=== PATIENT | male | born 1975 ===

== ENCOUNTER 2017-01-06 14:25 | Emergency (ER) | payer OTHER ==
[2017-01-06 14:25] VITALS: BMI 23.3
[2017-01-06 14:44] VITALS: RESP 18; O2SAT 98
--- NOTE | 2017-01-06 15:29 | C.PDOC ---
History Of Present Illness 41 yo male w/o significant PMHx come in for evaluation of mild frontal headache , nasal congestion, runny nose, bodyaches, sore throat gradually developed for past few days. Otherwise, t denies high fever, chills, worse headache of life, drooling, dyspnea, SOB, wheezing, abd. pain, V/D, back pain, UTI sx. Ambulate to ED for evaluation, not in any apparent distress. Time Seen by Provider: 01/06/17 14:44 Chief Complaint (Nursing): ENT Problem Past Medical History Vital Signs: Last Vital Signs Temp 99.4 F 01/06/17 14:40 Pulse 84 01/06/17 14:40 Resp 18 01/06/17 14:40 BP 112/76 01/06/17 14:40 Pulse Ox 98 01/06/17 14:40 Family History: States: Unknown Family Hx - Social History Hx Alcohol Use: No Hx Substance Use: No - Immunization History Hx Tetanus Toxoid Vaccination: No Hx Influenza Vaccination: No Hx Pneumococcal Vaccination: No Physical Exam - Physical Exam Appears: Well, Non-toxic, No Acute Distress Skin: Normal Color, Warm, Dry, No Rash Head: Normacephalic Eye(s): bilateral: PERRL Ear(s): Bilateral: Normal Nose: No Flaring, Discharge (B/L scant) Oral Mucosa: Moist, No Drooling Tongue: Normal Appearing Lips: Normal Appearing Throat: Erythema (mod with mild edema.), No Exudate, No Drooling Neck: Trachea Midline, Supple Cardiovascular: Rhythm Regular Respiratory: No Decreased Breath Sounds, No Accessory Muscle Use, No Stridor, No Wheezing Gastrointestinal/Abdominal: Soft, No Tenderness, No Distention, No Guarding Back: No CVA Tenderness Extremity: Normal ROM, No Deformity, No Swelling Neurological/Psych: Oriented x3, Normal Speech ED Course And Treatment O2 Sat by Pulse Oximetry: 98 Pulse Ox Interpretation: Normal Progress Note: On re-eval, pt is afebrile, hemodynamicaly stable. non-toxic. Tolerate Po well in ED. PulseOx 98% RA. ENT: exam c/w acute pharyngitis. uvula midline, no edmea. neck: Supple, (-) meningeal sign. Lungs: CTA B/L, BS equal B/L. CVS: (+)S1S2, reg. Abd: benign. Neuorlogicaly intact. Influenza ( -). Pt advised on course of ds. refl. to F/U with PMD in 2-3 days for re- eval. return to ED if any worsening or new changes. Disposition Counseled Patient/Family Regarding: Studies Performed, Diagnosis, Need For Followup, Rx Given - Disposition Referrals: [facility] [Outside] Disposition: HOME/ ROUTINE Disposition Time: 15:26 Condition: STABLE Additional Instructions: ENCOURAGE FLUIDS TAKE MEDICATION PRESCRIBED FOLLOW UP WITH PMD IN 2-3 DAYS FOR RE-EVALUATION. RETURN TO ED IF ANY WORSENING OR NEW CHANGES. Prescriptions: Amoxicillin/Clavulanate [Augmentin 875 MG-125 MG] 1 tab PO BID #14 tab Ibuprofen [Motrin Tab] 400 mg PO Q6 #20 tab Prednisone [Deltasone] 40 mg PO DAILY #6 tablet Instructions: Pharyngitis (ED) Forms: [employer] (Bengali) Print Language: ESTONIAN - Clinical Impression Clinical Impression: Pharyngitis
[2017-01-06 15:45] VITALS: BP 110/67; PULSE 71; TEMP 100.1
== END 2017-01-06 15:52 | disposition home or self-care (01) ==
LOC: C.ER 14:25
DX: J02.9 Acute pharyngitis, unspecified (principal)

== ENCOUNTER 2017-09-01 11:54 | Emergency (ER) | payer OTHER ==
[2017-09-01 11:54] VITALS: BMI 23.3
[2017-09-01 12:02] VITALS: RESP 18
[2017-09-01] MEDS ORDERED: Sodium Chloride 0.9% 1,000 ML IV STA (12:48)
[2017-09-01 13:35] LABS: BASO # 0.1 K/uL (0.0-0.2); EOS # 0.5 K/uL (0.0-0.7); HEMOGLOBIN 14.4 g/dL (12.0-18.0); LYMPH # 1.8 K/uL (1.0-4.3); LYMPH % 23.5 % (20.0-40.0); MEAN CORPUSCULAR HGB CONC 35.4 g/dL (33.0-37.0); MEAN PLATELET VOLUME 9.9 fL (7.2-11.7); MONO # 0.7 K/uL (0.0-0.8); MONO % 9.1 % (0.0-10.0); NEUT # 4.6 K/uL (1.8-7.0); NEUT % 59.4 % (50.0-75.0); NRBC % 0.1 % (0.0-2.0); RBC 4.98 Mil/uL (4.40-5.90); RED CELL DISTRIBUTION WIDTH 13.5 % (11.5-14.5); WHITE BLOOD COUNT 7.7 K/uL (4.8-10.8)
[2017-09-01] MEDS ORDERED: Iohexol 240 (50 ml) ONE (13:39)
[2017-09-01 13:42] LABS: URINE BILIRUBIN NEGATIVE (NEGATIVE); URINE BLOOD NEGATIVE (NEGATIVE); URINE CLARITY Clear (Clear); URINE COLOR Straw (YELLOW); URINE GLUCOSE (UA) NORMAL (Normal); URINE LEUKOCYTE ESTERASE NEG Leu/uL (Negative); URINE PROTEIN NEGATIVE (NEGATIVE); URINE UROBILINOGEN NORMAL mg/dL (0.2-1.0)
[2017-09-01 13:47] LABS: ALB/GLOB RATIO 1.5 (1.0-2.1); ALBUMIN 4.1 g/dL (3.5-5.0); ALT/SGPT 30 U/L (21-72); AST/SGOT 30 U/L (17-59); BLOOD UREA NITROGEN 14 mg/dL (9-20); CALCIUM 9.1 mg/dl (8.6-10.4); GFR AFRICAN-AMERICAN > 60; GFR NON-AFRICAN AMERICAN > 60; LIPASE 101 U/L (23-300)
[2017-09-01 15:54] VITALS: PULSE 43; O2SAT 98
[2017-09-01] MEDS ORDERED: Iohexol 350mg/ml 100 ML ONE (16:25)
--- NOTE | 2017-09-01 16:55 | C.PDOC ---
History Of Present Illness 42 y/o male presents to the ER complaining of abdominal pain which has been present for the past 3-4 days. Patient states that the pain radiates to the back. he had similar episode of pain previously which resolved. Denies having nausea,vomiting, and diarrhea. 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 Time Seen by Provider: 09/01/17 12:17 Chief Complaint (Nursing): Abdominal Pain History Per: Patient History/Exam Limitations: no limitations Onset/Duration Of Symptoms: Days Current Symptoms Are (Timing): Still Present Severity: Moderate Associated Symptoms: denies: Fever, Chills, Nausea, Vomiting, Diarrhea Past Medical History Reviewed: Historical Data, Nursing Documentation, Vital Signs Vital Signs: Last Vital Signs Temp 97.7 F 09/01/17 18:02 Pulse 43 L 09/01/17 18:02 Resp 18 09/01/17 18:02 BP 113/71 09/01/17 18:02 Pulse Ox 98 09/01/17 18:02 - Medical History PMH: No Chronic Diseases Surgical History: No Surg Hx Family History: States: No Known Family Hx - Social History Hx Alcohol Use: No Hx Substance Use: No - Immunization History Hx Tetanus Toxoid Vaccination: No Hx Influenza Vaccination: No Hx Pneumococcal Vaccination: No Review Of Systems Except As Marked, All Systems Reviewed And Found Negative. Constitutional: Negative for: Fever, Chills Gastrointestinal: Positive for: Abdominal Pain. Negative for: Nausea, Vomiting , Diarrhea Physical Exam - Physical Exam Appears: Non-toxic, No Acute Distress Skin: Normal Color, Warm, Dry Head: Atraumatic, Normacephalic Eye(s): bilateral: Normal Inspection Nose: Normal Oral Mucosa: Moist Neck: Supple Chest: Symmetrical Cardiovascular: Rhythm Regular Respiratory: Normal Breath Sounds, No Rales, No Rhonchi, No Wheezing Gastrointestinal/Abdominal: Soft, Tenderness (diffuse mild tenderness to lower abdomen, mostly anterior abdominal wall), No Guarding, No Rebound Back: Paraspinal Tenderness (ls spine area) Extremity: Normal ROM Neurological/Psych: Oriented x3, Normal Speech ED Course And Treatment - Laboratory Results Result Diagrams: 09/01/17 12:48 09/01/17 12:48 O2 Sat by Pulse Oximetry: 98 (RA) Pulse Ox Interpretation: Normal - CT Scan/US CT- Abd & Pelv. Other Rad Studies (CT/US): Read By Radiologist, Radiology Report Reviewed CT/US Interpretation: Date of service: 09/01/2017. PROCEDURE: CT Abdomen and Pelvis with contrast. HISTORY: lower abd pain. COMPARISON: None. TECHNIQUE : Contrast dose: 100 mL Omnipaque 300. Radiation dose: Total exam DLP = 236.6 mGy-cm. This CT exam was performed using one or more of the following dose reduction techniques: Automated exposure control, adjustment of the mA and/ or kV according to patient size, and/or use of iterative reconstruction technique. FINDINGS: LOWER THORAX: Unremarkable. LIVER: Mild periportal edema. No gross lesion or ductal dilatation. GALLBLADDER AND BILE DUCTS: Unremarkable. PANCREAS: Unremarkable. No gross lesion or ductal dilatation. SPLEEN: Unremarkable. ADRENALS: Unremarkable. No mass. KIDNEYS AND URETERS: Unremarkable. No hydronephrosis. No solid mass. VASCULATURE: Unremarkable. No aortic aneurysm. BOWEL: Unremarkable. No obstruction. No gross mural thickening. APPENDIX: Normal appendix. PERITONEUM: Unremarkable. No free fluid. No free air. LYMPH NODES: Unremarkable. No enlarged lymph nodes. BLADDER: Unremarkable. REPRODUCTIVE: Unremarkable. BONES: No acute fracture. OTHER FINDINGS: None. IMPRESSION: Unremarkable contrast enhanced CT of the abdomen and pelvis. Progress Note: Labs, UA, and CT- Abd & Pelv. ordered. Patient treated with IV Fluids and Toradol IV. On re-evaluation patient feels better, no longer c/o abdominal pain. Patient tolerates po. Patient is stable to be d/c home with PMD follow up. Disposition - Disposition Disposition: HOME/ ROUTINE Disposition Time: 17:58 Condition: STABLE Additional Instructions: Follow up with your PMD within 1-2 days. Return to ED if feel worse. Prescriptions: Naproxen [Naprosyn] 1 tab PO BID PRN #25 tab PRN Reason: Pain Instructions: Muscle and Bone Pain (DC) Forms: [employer] (Vietnamese), Work Excuse - Clinical Impression Clinical Impression: Musculoskeletal pain - PA / [employer]EVEL [employer] / Resident Statement MD/DO has reviewed & agrees with the documentation as recorded. - Scribe Statement The provider has reviewed the documentation as recorded by the Chelita Bell Provider Attestation All medical record entries made by the Chelita were at my direction and personally dictated by me. I have reviewed the chart and agree that the record accurately reflects my personal performance of the history, physical exam, medical decision making, and the department course for this patient. I have also personally directed, reviewed, and agree with the discharge instructions and disposition.
--- NOTE | 2017-09-01 16:58 | CT ---
Date of service: 09/01/2017 PROCEDURE: CT Abdomen and Pelvis with contrast HISTORY: lower abd pain COMPARISON: None. TECHNIQUE: Contrast dose: 100 mL Omnipaque 300 Radiation dose: Total exam DLP = 236.6 mGy-cm. This CT exam was performed using one or more of the following dose reduction techniques: Automated exposure control, adjustment of the mA and/or kV according to patient size, and/or use of iterative reconstruction technique. FINDINGS: LOWER THORAX: Unremarkable. LIVER: Mild periportal edema. No gross lesion or ductal dilatation. GALLBLADDER AND BILE DUCTS: Unremarkable. PANCREAS: Unremarkable. No gross lesion or ductal dilatation. SPLEEN: Unremarkable. ADRENALS: Unremarkable. No mass. KIDNEYS AND URETERS: Unremarkable. No hydronephrosis. No solid mass. VASCULATURE: Unremarkable. No aortic aneurysm. BOWEL: Unremarkable. No obstruction. No gross mural thickening. APPENDIX: Normal appendix. PERITONEUM: Unremarkable. No free fluid. No free air. LYMPH NODES: Unremarkable. No enlarged lymph nodes. BLADDER: Unremarkable. REPRODUCTIVE: Unremarkable. BONES: No acute fracture. OTHER FINDINGS: None. IMPRESSION: Unremarkable contrast enhanced CT of the abdomen and pelvis.
[2017-09-01 18:04] VITALS: BP 113/71; TEMP 97.7
== END 2017-09-01 18:14 | disposition home or self-care (01) ==
LOC: C.ER 11:54
DX: M79.1 Myalgia (principal)
CPT/HCPCS: 74177; 80053; 81001; 83690; 85025; 96374; 99284; J1885; J7030; Q9967